=== PATIENT | female | born 1930 | race African-American/Black ===

== ENCOUNTER 2021-09-28 11:10 | Emergency (ER) | payer OTHER ==
[~2021-09-28] VITALS: Ht 170.2 cm; Wt 53.1 kg
[2021-09-28 11:17] VITALS: BP_SYST 155
--- NOTE | 2021-09-28 11:22 | NUR ---
Patient to ER bed H1 to gown for evaluation. Side rails up.
--- NOTE | 2021-09-28 11:30 | NUR ---
PT BIBA FROM HOME C/O BLEEDING FROM RIGHT ANKLE. 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 STATES SHE WAS WASHING HER ANKLE IN TUB WHEN IT BEGAN TO BLEED A LOT. WOUND WAS WRAPPED. ON ARRIVAL NO BLEEDING, PT IS AAOX4, VSS.
--- NOTE | 2021-09-28 11:47 | NUR ---
ER DR. CLANCY EXAMINING PT
--- NOTE | 2021-09-28 12:12 | NUR ---
Patient given written and verbal discharge instructions and verbalizes understanding. ER MD discussed with patient the results and treatment provided. Patient in stable condition. ID arm band removed. NO Rx given. Patient educated on pain management and to follow up with PMD. Pain Scale 0/10. Opportunity for questions provided and answered. Medication side effect fact sheet provided.
== END 2021-09-28 12:10 | disposition home or self-care (01) ==
LOC: SED 11:10
DX: S81.802A Unspecified open wound, left lower leg, initial encounter (principal); X58.XXXA Exposure to other specified factors, initial encounter; Y93.89 Activity, other specified; Y92.89 Other specified places as the place of occurrence of the external cause; Y99.8 Other external cause status
CPT/HCPCS: 99281; 99283